=== PATIENT | male | born 1955 | race Caucasian/White ===

== ENCOUNTER 2021-10-06 19:45 | Emergency (ER) | payer OTHER ==
[~2021-10-06] VITALS: Ht 185.4 cm; Wt 77.1 kg
[~2021-10-06 19:45] MED LIST: GABAPENTIN600 M1 PO; NAPROSYN500 MG PO; NORCO 5-325 TA1 EAC2 PO; TRAMADOL 50 MG50 MG PO
[2021-10-06 20:55] LABS: ANION GAP 11 mmol/L (7-16); BUN 3 mg/dL (7-18); CHLORIDE 97 mmol/L (98-107); CO2 25 mmol/L (21-32); CREATININE 0.8 mg/dL (0.7-1.3); GLUCOSE 95 mg/dL (74-106); POTASSIUM 3.9 mmol/L (3.5-5.1); SODIUM 133 mmol/L (136-145)
[2021-10-06 21:02] LABS: ABSOLUTE NEUTROPHILS 3.4 thou/uL (1.4-8.2); BASOPHILS 1.3 % (0.0-2.0); EOSINOPHILS 2.8 % (0.0-3.0); HEMATOCRIT 44.2 % (42.0-52.0); HEMOGLOBIN 14.6 gm/dL (14.0-18.0); LYMPHOCYTES 18.3 % (24.0-44.0); MCH 33.2 pg (26.0-34.0); MCHC 33.1 g/dL (28.0-37.0); MCV 100.1 fL (80.0-100.0); MONOCYTES 11.3 % (1.0-8.0); PLATELET COUNT 381 thou/uL (150-400); POLYS 66.3 % (36.0-66.0); RBC 4.42 mil/uL (4.50-6.00); RDW 12.6 % (10.5-14.5); WBC 5.2 thou/uL (4.0-11.0)
[2021-10-06 21:06] LABS: ALBUMIN 2.7 g/dL (3.4-5.0); AMYLASE 43 U/L (25-115); DIRECT BILIRUBIN < 0.1 mg/dL (<0.1-0.2); LIPASE 172 U/L (73-393); MAGNESIUM 1.9 mg/dL (1.8-2.4); PHOSPHORUS 4.6 mg/dL (2.6-4.7); SGOT 32 U/L (15-37); SGPT 33 U/L (16-63); TOTAL BILIRUBIN 0.2 mg/dL (0.2-1.0)
[2021-10-06] MEDS ORDERED: NORCO5 PO (22:47)
[2021-10-06 23:00] VITALS: BP 161/88
--- NOTE | 2021-10-07 11:04 | EKG ---
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
== END 2021-10-06 23:05 | disposition home or self-care (01) ==
LOC: ER 19:45
PROVIDERS: Emergency Medicine
DX: R07.89 Other chest pain (principal); Z20.822 Contact with and (suspected) exposure to COVID-19; I10 Essential (primary) hypertension; F17.210 Nicotine dependence, cigarettes, uncomplicated